=== PATIENT | male | born 1945 | race Caucasian/White ===

== ENCOUNTER 2020-04-11 12:06 | Outpatient (CLI) | payer OTHER ==
--- NOTE | 2020-04-11 13:18 | CT ---
EXAM: CT calcium score HISTORY: History of coronary artery disease. COMPARISON: None TECHNIQUE: Multiple contiguous axial images were obtained a CT of the heart without contrast. FINDINGS: The CT images show no suspicious pulmonary nodules. No hilar or mediastinal lymphadenopathy are seen. The patient's total Agatston calcium score is 854. IMPRESSION: High calcium score. A high calcium score may be consistent with a significant risk of hav ing a cardiovascular event within the next 5 years.
== END 2020-04-11 12:07 | disposition home or self-care (01) ==
LOC: BICCT 12:06
PROVIDERS: ATTEND Family Medicine
DX: I25.10 Atherosclerotic heart disease of native coronary artery without angina pectoris (principal)
CPT/HCPCS: 75571

== ENCOUNTER 2025-03-18 14:00 | Outpatient (CLI) | payer MEDICARE ==
[2025-03-18 14:30] LABS: Estimated GFR - POC 56.0
== END 2025-03-18 14:01 | disposition home or self-care (01) ==
LOC: SCSMRI 14:00
PROVIDERS: ATTEND Otolaryngology Plastic Surgery within the Head & Neck
DX: H90.42 Sensorineural hearing loss, unilateral, left ear, with unrestricted hearing on the contralateral side (principal)
CPT/HCPCS: 36415; 70553; 76376; 82565